=== PATIENT | female | born 1985 | race Caucasian/White ===

== ENCOUNTER 2018-02-06 10:20 | Emergency (ER) | payer OTHER ==
[2018-02-06] MEDS: METHYLPREDNISOLONE 125 MG INJ IV (11:30)
[2018-02-06] MEDS: CEFTRIAXONE 1 GM/50 ML (PMX) 50 ML IVPB (11:30)
== END 2018-02-06 12:07 | disposition home or self-care (01) ==
LOC: FTE 10:20
DX: J03.90 Acute tonsillitis, unspecified (principal)
CPT/HCPCS: 96365; 96375; 99284-25

== ENCOUNTER 2019-02-14 08:10 | Emergency (ER) | payer OTHER ==
[2019-02-14] MEDS: LORAZEPAM 1 MG TAB PO (09:03)
== END 2019-02-14 09:47 | disposition home or self-care (01) ==
LOC: E/R 08:10
DX: F41.9 Anxiety disorder, unspecified (principal); R40.2142 Coma scale, eyes open, spontaneous, at arrival to emergency department; R40.2362 Coma scale, best motor response, obeys commands, at arrival to emergency department; R40.2252 Coma scale, best verbal response, oriented, at arrival to emergency department; R00.2 Palpitations; Z87.891 Personal history of nicotine dependence
CPT/HCPCS: 81025; 93005; 99283-25